=== PATIENT | female | born 1990 | race Caucasian/White ===

== ENCOUNTER 2021-11-08 15:42 | Observation (INO) | payer MEDICAID ==
[~2021-11-08] VITALS: Ht 165.1 cm; Wt 81.6 kg
[2021-11-08 17:49] LABS: CLARITY URINE CLOUDY (CLEAR); COLOR URINE YELLOW (YELLOW); KETONES URINE NEGATIVE (NEGATIVE); LEUKOCYTE ESTERASE URINE 3+ (NEGATIVE); NITRITE URINE NEGATIVE (NEGATIVE); OCCULT BLOOD URINE NEGATIVE (NEGATIVE); PROTEIN URINE TRACE (NEGATIVE); SPECIFIC GRAVITY URINE 1.017 (1.005-1.030)
== END 2021-11-08 18:30 | disposition home or self-care (01) ==
LOC: 8 EST LDRP 15:42
PROVIDERS: ADMIT Obstetrics & Gynecology; ATTEND Obstetrics & Gynecology
DX: O26.893 Other specified pregnancy related conditions, third trimester (principal); R10.9 Unspecified abdominal pain; O62.9 Abnormality of forces of labor, unspecified; Z3A.29 29 weeks gestation of pregnancy
CPT/HCPCS: 59025; 81003; G0378; 99281

== ENCOUNTER 2025-10-29 00:49 | Emergency (ER) | payer MEDICAID ==
[~2025-10-29] VITALS: Ht 165.1 cm; Wt 78.7 kg
[2025-10-29 01:27] VITALS: O2SAT 98
[2025-10-29] MEDS: MECLIZINE 12.5MG TABLET PO ONE (02:54)
[2025-10-29 03:42] LABS: PLATELET 246 x1000/uL (130-400); RED BLOOD CELL COUNT 3.53 mill/uL (4.2-5.4); RED CELL DISTRIBUTION WIDTH 12.5 % (11.6-14.6)
[2025-10-29 04:01] LABS: CREATININE 0.7 mg/dL (0.6-1.0); UREA NITROGEN BLOOD 12 mg/dL (9-23)
[2025-10-29] MEDS ORDERED: MECL-217 MT (04:57)
[2025-10-29] MEDS ORDERED: NAPR-1176 MT (04:57)
[2025-10-29 05:12] VITALS: BP 129/60; PULSE 75; RESP 18; TEMP 36.8; O2SAT 98
== END 2025-10-29 05:15 | disposition home or self-care (01) ==
LOC: ER 00:49
DX: R42 Dizziness and giddiness (principal); R51.9 Headache, unspecified; Z79.1 Long term (current) use of non-steroidal anti-inflammatories (NSAID)
CPT/HCPCS: 99284; 80048; 85027; 36415; 93005; J8597